=== PATIENT | female | born 1965 | race Caucasian/White ===

== ENCOUNTER → 2016-07-06 | Outpatient (CLI) | payer BC ==
[~2016-07-06] MED LIST: ALBU2.5V12 INH; FLUT1DIS3 IH; HYDR-2013; LOVA10TA; METH4TAB27 PO; NORE1TAB95; NORG1TAB16 PO; TRIA10.8 NS
[2016-07-06 20:16] VITALS: BP 135/87
--- NOTE | 2016-07-06 20:16 | Urgent Care T Sheet Gen (E) ---
Intake General Temperature (Fahrenheit): 98.1 Pulse: 108 Blood Pressure Systolic: 135 Blood Pressure Diastolic: 87 Respirations: 20 SPO2: 99 Chief Complaint: toenail fungus? Source: Patient History of Present Illness Initial Comments Pt notes that she has noticed the tips of bilat great toenails have become whitish and a little bit thicker. She is concerned with toenail fungus. Allergies: Coded Allergies: Sulfa (Sulfonamide Antibiotics) (Unverified Allergy, Mild, 08/12/14) Penicillins (Verified Allergy, Unknown, 07/13/15) Uncoded Allergies: ERTHROMYCIN TRAMADOL (Allergy, Unknown, 08/12/14) Home Meds Reported Medications Triamcinolone Acetonide (Nasacort)10.8 Ml Spray1 Ml NS DAILY 07/13/15 Fluticasone/Salmeterol (Advair 250-50 Diskus)1 Each Disk.w.dev1 Each IH NEEDED 07/13/15 Albuterol Sulfate (Proventil 0.083%)2.5 Mg/3 Ml Nebu2.5 Mg INH NEEDED 07/13/15 Norgestrel-Ethinyl Estradiol (Cryselle)1 Each Tablet1 Each PO UD 07/13/15 Lovastatin 10 Mg Tablet 07/18/12 Respiratory Constitutional Symptoms: No syptoms reported EENTM: No symptoms reported Respiratory: No symptoms reported Cardiovascular: No symptoms reported Gastrointestinal/Abdominal: No symptoms reported Skin: See HPI All Other Systems Reviewed Remaining Systems: All other systems reviewed with negative findings Past Twnleku-Wzcchj-Nnbxfe Hx Patient's Social History Alcohol Use: Denies Use Smoking Status: Never smoker Surgeries/Hospitalizations Hospitalization/Surgery Hx: None Respiratory Respiratory History: Asthma Cardiovascular Cardiovascular History: Hypercholesterolemia Comment: elevated cholestrol Neuro/Muscular Neuro/Muscular History: Back Problems Comment: Siatica Reproductive System Sexually Transmitted Diseases: No Gastrointestinal GI/Endocrine History: Heartburn Diabetes Diabetes: No HEENT Impaired Vision: None Hearing Impaired: None Psychosocial Behavior Disorders: None Physical Exam Physical Exam General Appearance: WD/WN No apparent distress Eyes, Ears, Nose, Throat Ex: PERRL/EOMI Normal ENT inspection Neck Exam: Non tender Full range of motion Normal inspection Normal thyroid Respiratory Exam: Lungs clear Normal breath sounds Cardiovascular Exam: Regular rate, rhythm No edema Skin Exam: Other (Bilat great toenails have slight thicking and whiteness to the tips. No erythema surrounding the nail. ) Departure Urgent Care Impression Chief Complaint: toenail fungus? Impression: Primary Impression: Discoloration of nail Departure Disposition: 01 HOME OR SELF-CARE Condition: Stable Referrals: SHOAIB ROJAS MD (PCP) Additional Instructions: Will treat with Lamisil as below. Follow-up with Primary Care Provider. Return to or ER if further problems. Discharge instructions verbally given to patient. Patient verbalizes understanding of discharge instructions. End of report . VIVIANE VACA Jul 06, 2016 20:16
== END ==
LOC: MHUC 18:56
PROVIDERS: ATTEND Physician Assistant
DX: L60.8 Other nail disorders (principal)
CPT/HCPCS: 99213